=== PATIENT | male | born 1960 | race Caucasian/White ===

== ENCOUNTER 2018-02-21 12:03 | Day surgery (SDC) | payer OTHER ==
[2018-02-21] MEDS ORDERED: PROPOFOL 40 ML (14:31)
== END 2018-02-21 17:33 | disposition home or self-care (01) ==
LOC: GIL 12:03
DX: Z12.11 Encounter for screening for malignant neoplasm of colon (principal); K29.50 Unspecified chronic gastritis without bleeding; D12.5 Benign neoplasm of sigmoid colon; K64.8 Other hemorrhoids; E11.9 Type 2 diabetes mellitus without complications
CPT/HCPCS: 43239; 88305; 88312